=== PATIENT | female | born 1930 | race Caucasian/White ===

== ENCOUNTER 2018-09-24 23:14 | Emergency (ER) | payer OTHER ==
[~2018-09-24] VITALS: Ht 157.5 cm; Wt 56.7 kg
--- NOTE | 2018-09-24 23:16 | NUR ---
PT [id number] FROM HOME C/C R WRIST PAIN S/P GLF. +HEAD TRAUMA, -LOC. PT IS AAOX3, NOT IN RESPIRATORY DISTRESS, V/S STABLE, KEPT RESTED AND COMFORTABLE, WILL CONTINUE TO MONITOR, AWAITING ER MD FOR EVAL.
--- NOTE | 2018-09-24 23:25 | NUR ---
SEEN AND EXAMINED BY .
--- NOTE | 2018-09-24 23:42 | NUR ---
PT IS WHEELED TO CT SCAN VIA [facility].
--- NOTE | 2018-09-25 03:41 | NUR ---
Charles kelley in [facility] - 09/25/18 at 0341 by NATALIIA Patient discharged to home in stable condition. Written and verbal after care instructions given. Patient verbalizes understanding of instruction.
--- NOTE | 2018-09-25 03:41 | NUR ---
Patient does not wish to proceed with medical care recommended by Dr. HORN. Patient given information related to possible complications, up to and including , which could occur as a result of leaving the hospital at this time. Patient verbalizes understanding of risks involved due to leaving against medical advice. Patient has signed AMA form.
--- NOTE | 2018-09-25 03:41 | NUR ---
Patient discharged to home in stable condition. Written and verbal after care instructions given. Patient verbalizes understanding of instruction.
[2018-09-25 03:42] VITALS: BP 128/71
== END 2018-09-25 03:44 | disposition left against medical advice (07) ==
LOC: ER 23:20
DX: S52.571A Other intraarticular fracture of lower end of right radius, initial encounter for closed fracture (principal); R51 Headache; W01.198A Fall on same level from slipping, tripping and stumbling with subsequent striking against other object, initial encounter; Y93.89 Activity, other specified; Y92.89 Other specified places as the place of occurrence of the external cause; Y99.8 Other external cause status
CPT/HCPCS: 70450-TC; 73110